=== PATIENT | male | born 1965 | race Caucasian/White ===

== ENCOUNTER 2024-03-08 08:31 | Outpatient (REF) | payer BC, SELFPAY ==
[2024-03-08 11:43] LABS: Prostate Specific Antigen 2.44 ng/mL (<0.05-4.0)
== END 2024-03-08 08:32 | disposition home or self-care (01) ==
LOC: HO.HMGCLDS 08:31
PROVIDERS: PCP Internal Medicine; Visit Provider Nurse Practitioner Family
DX: R97.20 Elevated prostate specific antigen [PSA] (principal); Z12.5 Encounter for screening for malignant neoplasm of prostate
CPT/HCPCS: 36415; 84153